=== PATIENT | male | born 1985 | race Hispanic/Latino ===

== ENCOUNTER 2017-11-03 11:14 | Emergency (ER) | payer SELFPAY ==
--- NOTE | 2017-11-03 12:05 | RAD ---
CHEST 2 VIEWS: Date: 11/03/17 HISTORY: Fall off horse. COMPARISON: None. FINDINGS: Lungs are clear. No pneumothorax or effusion. Cardiac silhouette and mediastinal contours within norm al limits. No acute osseous abnormality. No displaced rib fracture is appreciated. IMPRESSION: No acute intrathoracic abnormality. POS: [facility]
[2017-11-03] MEDS ORDERED: Ketorolac Tromethamine 60 MG/2 ML VIAL ONE (12:06)
== END 2017-11-03 12:29 | disposition home or self-care (01) ==
LOC: ERS 11:14
DX: M54.5 Low back pain (principal)
CPT/HCPCS: 71046; 96372; J1885